=== PATIENT | female | born 1990 | race Caucasian/White ===

== ENCOUNTER 2020-04-26 22:03 | Emergency (ER) | payer OTHER ==
[~2020-04-26] VITALS: Ht 162.6 cm; Wt 51.3 kg
[~2020-04-26 22:03] MED LIST: IBUPROFEN 800800 M1 PO; LEXAPRO5 MG; TRIVORA-281 EACH
[2020-04-26 22:59] LABS: URINE BILIRUBIN NEGATIVE (Negative); URINE BLOOD 2+ (Negative); URINE CLARITY CLEAR; URINE COLOR YELLOW; URINE GLUCOSE-RANDOM NEGATIVE (Negative); URINE KETONES 2+ (Negative); URINE LEUKOCYTES-REFLEX TRACE (Negative); URINE NITRITE-REFLEX NEGATIVE (Negative); URINE PROTEIN NEGATIVE (Negative); URINE SPECIFIC GRAVITY 1.015 (1.005-1.030); URINE UROBILINOGEN 0.2 E.U./dl (0.2-1.0)
[2020-04-26 23:05] LABS: BACTERIA-REFLEX 1-9 Few /HPF (None Seen); SQUAMOUS 0-3 Few /LPF (0-3); URINE RBC 0-2 Rare /HPF (0-2); URINE WBC-REFLEX 0-5 Rare /HPF (0-5)
[2020-04-26 23:06] LABS: AMORPHOUS URATES Moderate /LPF (None Seen); CASTS None Seen /LPF (None Seen)
[2020-04-26 23:22] LABS: HEMATOCRIT 39.9 % (37.0-47.0); HEMOGLOBIN 13.5 gm/dL (12.0-15.0); MCH 32.1 pg (26.0-34.0); MCHC 33.8 g/dL (28.0-37.0); MCV 94.9 fL (80.0-100.0); NUCLEATED RBCS 0 /100WBC; PLATELET COUNT* 292 thou/uL (150-400); RBC 4.21 mil/uL (4.20-5.00); WBC 12.7 thou/uL (4.0-11.0)
[2020-04-26 23:27] LABS: CALCIUM 8.3 mg/dL (8.5-10.1); POTASSIUM 4.1 mmol/L (3.5-5.1)
[2020-04-26 23:31] LABS: ALBUMIN 3.5 g/dL (3.4-5.0); TOTAL BILIRUBIN 0.2 mg/dL (<0.1-1.0); TOTAL PROTEIN 6.9 g/dL (6.4-8.2)
[2020-04-26 23:46] LABS: ABSOLUTE MONOCYTES 0.4 thou/uL (0.0-1.2); ABSOLUTE NEUTROPHILS 10.3 thou/uL (1.6-8.1); PLATELET ESTIMATE ADEQUATE
[2020-04-26 23:47] LABS: ANISOCYTOSIS Occasional; LARGE PLATELETS FEW
[2020-04-26] MEDS ORDERED: KEFLEX500 M1 PO (23:53)
[2020-04-27 00:14] VITALS: BP 101/58
--- NOTE | 2020-04-27 08:49 | EKG ---
[place] [address] ELECTROCARDIOGRAM REPORT Name: SHIREEN ADAME Room: [facility]#: [id number] Admission: 04/26/20 Attend Phys: Discharge: 04/27/20 Date of : 89 Date of Service: 04/26/202307 Report #: [id number] THIS REPORT FOR: //name// [facility] ED Test Date: 2020-04-26 Test Time: 23:08:48 Pat Name: SHIREEN ADAME Department: Room: Gender: F Word Processor Operator: LANCE : 1990 Requested By: Homer Vo Order Number: [id number] MD: Jaime Bundy Measurements Intervals [place] Rate: 96 P: 77 WA: 101 QRS: 44 QRSD: 83 T: -32 QT: 354 QTc: 448 Interpretive Statements Sinus rhythm Short [place] interval Borderline T abnormalities, inferior leads No previous ECG available for comparison Electronically Signed On 04-27-2020 8:47:11 CDT by Jaime Bundy [email or web address] <ELECTRONICALLY SIGNED> By: Jaime Bundy MD, [facility] 04/27/20 0847 Jaime Bundy MD, [facility] /EPI
== END 2020-04-27 00:15 | disposition home or self-care (01) ==
LOC: M.ERS 22:03
PROVIDERS: Emergency Medicine Emergency Medical Services
DX: G43.909 Migraine, unspecified, not intractable, without status migrainosus (principal); N39.0 Urinary tract infection, site not specified; F41.9 Anxiety disorder, unspecified; Z88.6 Allergy status to analgesic agent